=== PATIENT | male | born 1970 | race Caucasian/White ===

== ENCOUNTER 2020-11-14 14:20 | Inpatient (IN) | payer BC ==
[2020-11-14] MEDS ORDERED: MENTHOL/PHENOL 1 EACH UD MM PRN (20:11)
[2020-11-14] MEDS ORDERED: IBUPROFEN 400 MG TABLET (FP) PO PRN (20:11)
[2020-11-14] MEDS ORDERED: MAGNESIUM HYDROX 2400MG/30ML ORAL SUSPENSION 30 ML CUP PO PRN (20:11)
[2020-11-14] MEDS ORDERED: METHOCARBAMOL 500 MG TABLET PO PRN (20:11)
[2020-11-14] MEDS ORDERED: diazePAM 5 MG TABLET PO PRN (20:11)
[2020-11-14] MEDS ORDERED: ONDANSETRON *ODT* 4 MG TABLET SL PRN (20:11)
[2020-11-14] MEDS ORDERED: MAGNESIUM CITRATE 300 ML BOTTLE PO PRN (20:11)
[2020-11-14] MEDS ORDERED: NICOTINE POLACRILEX 2 MG GUM BUC PRN (20:11)
[2020-11-14] MEDS ORDERED: MAG HYDROX/AL HYDROX/SIMETH 30 ML UNIT-DOSE CUP PO PRN (20:11)
[2020-11-14] MEDS ORDERED: BISMUTH SUBSALICYLATE 524 MG/30 ML PO PRN (20:11)
[2020-11-14] MEDS ORDERED: ACETAMINOPHEN 325 MG TABLET (FP) PO PRN ×2 (20:11)
[2020-11-14 20:59] VITALS: BMI 22.1
[2020-11-15] MEDS: THIAMINE HCL 100 MG TABLET (FP) PO SCH ×2 (00:41→22:12)
[2020-11-15] MEDS: MELATONIN 5 MG TABLETS PO SCH ×2 (00:42→22:12)
[2020-11-15] MEDS: diazePAM 5 MG TABLET PO SCH ×5 (00:42→22:12)
[2020-11-15] MEDS: hydrOXYzine PAMOATE 25 MG CAPSULE (FP) PO SCH ×6 (00:42→22:12)
[2020-11-15] MEDS: ALBUTEROL SO4 HFA INHALER IH PRN ×2 (01:17→14:59)
[2020-11-15] MEDS: PRENATAL VITAMINS W/ FOLIC ACID TABLET (FP) PO SCH (10:37)
[2020-11-15] MEDS: NICOTINE 14 MG/24 HOURS TOPICAL PATCH TD SCH (10:39)
[2020-11-15] MEDS: levETIRAcetam 500 MG TABLET (FP) PO SCH (10:39)
[2020-11-15 13:42] LABS: HEMATOCRIT 37.9 % (35.4-49); HEMOGLOBIN 12.7 GM/dL (11.7-16.9); MCH 34.7 pg (25.7-33.7); MCHC 33.5 g/dl (32.0-35.9); MEAN CELL VOLUME 103.5 fl (80-96); MEAN PLT VOLUME 9.8 fl (7.5-11.1); PLATELET COUNT 101 10^3/uL (134-434); RBC 3.66 M/mm3 (4.00-5.60); RDW 14.1 % (11.9-15.9); WHITE BLOOD COUNT 4.4 K/mm3 (4.0-10.0)
[2020-11-15 14:18] LABS: CALCIUM 8.2 mg/dL (8.5-10.1)
[2020-11-15 14:19] LABS: ALBUMIN 2.9 g/dl (3.4-5.0); BLOOD UREA NITROGEN 9.9 mg/dL (7-18)
[2020-11-15 14:22] LABS: CREATININE 0.5 mg/dL (0.55-1.3)
[2020-11-15 14:23] LABS: TOT PROT 6.6 g/dl (6.4-8.2)
[2020-11-15 14:25] LABS: BILIRUBIN,TOTAL 2.2 mg/dL (0.2-1)
[2020-11-15] MEDS: GABAPENTIN 300 MG CAPSULE PO SCH ×2 (14:54→22:12)
[2020-11-15] MEDS: QUEtiapine FUMARATE 100 MG TABLET (FP) PO SCH (22:12)
[2020-11-15] MEDS: NAPROXEN 500 MG TABLET PO SCH (22:12)
[2020-11-16] MEDS: GABAPENTIN 300 MG CAPSULE PO SCH ×3 (05:34→22:10)
[2020-11-16] MEDS: hydrOXYzine PAMOATE 25 MG CAPSULE (FP) PO SCH ×5 (05:35→22:10)
[2020-11-16] MEDS: diazePAM 5 MG TABLET PO SCH ×3 (05:35→22:10)
[2020-11-16] MEDS: NAPROXEN 500 MG TABLET PO SCH ×2 (10:27→22:10)
[2020-11-16] MEDS: levETIRAcetam 500 MG TABLET (FP) PO SCH (10:27)
[2020-11-16] MEDS: NICOTINE 14 MG/24 HOURS TOPICAL PATCH TD SCH (10:28)
[2020-11-16] MEDS: PRENATAL VITAMINS W/ FOLIC ACID TABLET (FP) PO SCH (10:28)
[2020-11-16] MEDS ORDERED: POTASSIUM CHLORIDE ORAL LIQUID 20 MEQ/15 ML PO ONE ×3 (12:00→16:00)
[2020-11-16] MEDS: SULFAMETHOXAZOLE/TRIMETHOPRIM 800MG/160MG D.S. TABLET PO SCH ×2 (12:39→22:10)
[2020-11-16] MEDS: THIAMINE HCL 100 MG TABLET (FP) PO SCH (22:09)
[2020-11-16] MEDS: MELATONIN 5 MG TABLETS PO SCH (22:09)
[2020-11-16] MEDS: QUEtiapine FUMARATE 100 MG TABLET (FP) PO SCH (22:10)
[2020-11-17] MEDS: hydrOXYzine PAMOATE 25 MG CAPSULE (FP) PO SCH ×5 (06:06→23:24)
[2020-11-17] MEDS: diazePAM 5 MG TABLET PO SCH ×2 (06:06→17:44)
[2020-11-17] MEDS: GABAPENTIN 300 MG CAPSULE PO SCH ×3 (06:06→21:31)
[2020-11-17] MEDS: PRENATAL VITAMINS W/ FOLIC ACID TABLET (FP) PO SCH (10:25)
[2020-11-17] MEDS: levETIRAcetam 500 MG TABLET (FP) PO SCH (10:26)
[2020-11-17] MEDS: NAPROXEN 500 MG TABLET PO SCH ×2 (10:26→21:31)
[2020-11-17] MEDS: ALBUTEROL SO4 HFA INHALER IH PRN (10:27)
[2020-11-17] MEDS: SULFAMETHOXAZOLE/TRIMETHOPRIM 800MG/160MG D.S. TABLET PO SCH ×2 (10:27→21:31)
[2020-11-17] MEDS: NICOTINE 14 MG/24 HOURS TOPICAL PATCH TD SCH (10:27)
[2020-11-17 11:24] LABS: ALBUMIN 2.8 g/dl (3.4-5.0); BILIRUBIN,TOTAL 1.9 mg/dL (0.2-1)
[2020-11-17 11:27] LABS: BILIRUBIN,DIRECT 1.3 mg/dL (0.0-0.2); TOT PROT 5.9 g/dl (6.4-8.2)
[2020-11-17] MEDS: THIAMINE HCL 100 MG TABLET (FP) PO SCH (21:31)
[2020-11-17] MEDS: QUEtiapine FUMARATE 100 MG TABLET (FP) PO SCH (21:31)
[2020-11-17] MEDS: MELATONIN 5 MG TABLETS PO SCH (21:32)
[2020-11-18] MEDS: GABAPENTIN 300 MG CAPSULE PO SCH (05:38)
[2020-11-18] MEDS: hydrOXYzine PAMOATE 25 MG CAPSULE (FP) PO SCH ×2 (05:39→10:45)
[2020-11-18] MEDS ORDERED: diazePAM 5 MG TABLET PO ONE (06:00)
[2020-11-18 06:34] VITALS: TEMP 97.5
[2020-11-18 10:00] VITALS: BP 115/77; PULSE 72
[2020-11-18] MEDS: levETIRAcetam 500 MG TABLET (FP) PO SCH (10:44)
[2020-11-18] MEDS: SULFAMETHOXAZOLE/TRIMETHOPRIM 800MG/160MG D.S. TABLET PO SCH (10:44)
[2020-11-18] MEDS: NAPROXEN 500 MG TABLET PO SCH (10:44)
[2020-11-18] MEDS: NICOTINE 14 MG/24 HOURS TOPICAL PATCH TD SCH (10:45)
[2020-11-18] MEDS: PRENATAL VITAMINS W/ FOLIC ACID TABLET (FP) PO SCH (10:45)
== END 2020-11-18 13:25 | disposition home or self-care (01) | DRG 897 ==
LOC: YASAS 14:20 → Y6N 20:31
PROVIDERS: ADMIT Allergy & Immunology; ATTEND Allergy & Immunology
PROC: HZ2ZZZZ Detoxification Services for Substance Abuse Treatment (ICD-10-PCS; principal; 2020-11-14)
DX: F10.230 Alcohol dependence with withdrawal, uncomplicated (principal); F14.20 Cocaine dependence, uncomplicated; F19.280 Other psychoactive substance dependence with psychoactive substance-induced anxiety disorder; F19.282 Other psychoactive substance dependence with psychoactive substance-induced sleep disorder; F33.1 Major depressive disorder, recurrent, moderate; G40.919 Epilepsy, unspecified, intractable, without status epilepticus; F12.20 Cannabis dependence, uncomplicated; F17.210 Nicotine dependence, cigarettes, uncomplicated; F19.24 Other psychoactive substance dependence with psychoactive substance-induced mood disorder; F43.10 Post-traumatic stress disorder, unspecified; I10 Essential (primary) hypertension; J45.909 Unspecified asthma, uncomplicated; K74.60 Unspecified cirrhosis of liver; D64.9 Anemia, unspecified; Z62.810 Personal history of physical and sexual abuse in childhood; R79.89 Other specified abnormal findings of blood chemistry; Z91.048 Other nonmedicinal substance allergy status
CPT/HCPCS: 36415; 80053; 80076; 80177; 84132; 85027; 86780; C9803; U0003; U0005

== ENCOUNTER 2022-04-10 17:28 | Inpatient (IN) | payer BC, OTHER ==
[2022-04-10 19:05] VITALS: BMI 22.6
[2022-04-10] MEDS ORDERED: POLYETHYLENE GLYCOL (HEALTHYLAX) 3350 17 GM PACKET PO PRN (21:18)
[2022-04-10] MEDS ORDERED: IBUPROFEN 400 MG TABLET (FP) PO PRN (21:18)
[2022-04-10] MEDS ORDERED: BENZOCAINE/MENTHOL (CHLORASEPTIC ) LOZENGE MM PRN (21:18)
[2022-04-10] MEDS ORDERED: NICOTINE POLACRILEX 2 MG GUM BUC PRN (21:18)
[2022-04-10] MEDS ORDERED: ONDANSETRON *ODT* 4 MG TABLET SL PRN (21:18)
[2022-04-10] MEDS ORDERED: MAG HYDROX/AL HYDROX/SIMETH 30 ML UNIT-DOSE CUP PO PRN (21:18)
[2022-04-10] MEDS ORDERED: NALOXONE HCL (KLOXXADO) 8 MG SPRAY NS PRN (21:18)
[2022-04-10] MEDS ORDERED: BISMUTH SUBSALICYLATE 524 MG/30 ML PO PRN (21:18)
[2022-04-10] MEDS ORDERED: ACETAMINOPHEN 325 MG TABLET (FP) PO PRN ×2 (21:18)
[2022-04-10] MEDS ORDERED: MAGNESIUM HYDROX 2400MG/30ML ORAL SUSPENSION 30 ML CUP PO PRN (21:18)
[2022-04-10] MEDS ORDERED: LOPERAMIDE HCL 2 MG CAPSULE PO PRN (21:18)
[2022-04-10] MEDS: THIAMINE HCL 100 MG TABLET (FP) PO SCH (23:23)
[2022-04-10] MEDS: MELATONIN 5 MG TABLETS PO SCH (23:23)
[2022-04-11] MEDS: METHOCARBAMOL 500 MG TABLET PO PRN (05:29)
[2022-04-11] MEDS: ALBUTEROL SO4 HFA INHALER IH PRN ×2 (05:30→10:33)
[2022-04-11] MEDS: PRENATAL VITAMINS W/ FOLIC ACID TABLET (FP) PO SCH (10:34)
[2022-04-11] MEDS: diazePAM 5 MG TABLET PO SCH ×3 (10:36→22:18)
[2022-04-11 10:40] LABS: HEMATOCRIT 36.6 % (35.4-49); HEMOGLOBIN 11.9 GM/dL (11.7-16.9); MCH 32.6 pg (25.7-33.7); MCHC 32.6 g/dl (32.0-35.9); MEAN PLT VOLUME 9.1 fl (7.5-11.1); PLATELET COUNT 81 10^3/uL (134-434); RBC 3.66 M/mm3 (4.00-5.60); RDW 14.7 % (11.9-15.9); WHITE BLOOD COUNT 5.1 K/mm3 (4.0-10.0)
[2022-04-11] MEDS: NICOTINE 14 MG/24 HOURS TOPICAL PATCH TD SCH (10:40)
[2022-04-11] MEDS: SERTRALINE HCL 50 MG TABLET (FP) PO SCH (10:40)
[2022-04-11] MEDS: IBUPROFEN 600 MG TABLET (FP) PO PRN (10:40)
[2022-04-11 10:45] LABS: BLOOD UREA NITROGEN 9.8 mg/dL (7-18)
[2022-04-11 10:49] LABS: CALCIUM 8.6 mg/dL (8.5-10.1); TOT PROT 6.9 g/dl (6.4-8.2)
[2022-04-11 10:50] LABS: ALBUMIN 2.3 g/dl (3.4-5.0)
[2022-04-11 10:53] LABS: CREATININE 0.7 mg/dL (0.55-1.3)
[2022-04-11] MEDS: diazePAM 5 MG TABLET PO PRN (12:20)
[2022-04-11] MEDS ORDERED: levETIRAcetam 500 MG TABLET (FP) PO ONE ×2 (12:50→14:30)
[2022-04-11] MEDS: BUDESONIDE/FORMETEROL FUMARATE 160/4.5 mcg INHALER IH SCH ×2 (14:16→22:18)
[2022-04-11] MEDS: levETIRAcetam 500 MG TABLET (FP) PO SCH (22:18)
[2022-04-11] MEDS: MELATONIN 5 MG TABLETS PO SCH (22:18)
[2022-04-11] MEDS: THIAMINE HCL 100 MG TABLET (FP) PO SCH (22:18)
[2022-04-11] MEDS: QUEtiapine FUMARATE 100 MG TABLET (FP) PO SCH (22:18)
[2022-04-12] MEDS: diazePAM 5 MG TABLET PO SCH ×4 (05:59→22:10)
[2022-04-12] MEDS: BUDESONIDE/FORMETEROL FUMARATE 160/4.5 mcg INHALER IH SCH ×2 (10:31→22:10)
[2022-04-12] MEDS: PRENATAL VITAMINS W/ FOLIC ACID TABLET (FP) PO SCH (10:31)
[2022-04-12] MEDS: levETIRAcetam 500 MG TABLET (FP) PO SCH ×2 (10:32→22:10)
[2022-04-12] MEDS: SERTRALINE HCL 50 MG TABLET (FP) PO SCH (10:32)
[2022-04-12] MEDS: NICOTINE 14 MG/24 HOURS TOPICAL PATCH TD SCH (10:35)
[2022-04-12] MEDS: MELATONIN 5 MG TABLETS PO SCH (22:09)
[2022-04-12] MEDS: QUEtiapine FUMARATE 100 MG TABLET (FP) PO SCH (22:09)
[2022-04-12] MEDS: THIAMINE HCL 100 MG TABLET (FP) PO SCH (22:09)
[2022-04-12] MEDS: DICYCLOMINE HCL 10 MG CAPSULE PO PRN (22:12)
[2022-04-13] MEDS: diazePAM 5 MG TABLET PO SCH ×4 (05:53→22:39)
[2022-04-13] MEDS: levETIRAcetam 500 MG TABLET (FP) PO SCH ×2 (10:26→22:39)
[2022-04-13] MEDS: SERTRALINE HCL 50 MG TABLET (FP) PO SCH (10:26)
[2022-04-13] MEDS: BUDESONIDE/FORMETEROL FUMARATE 160/4.5 mcg INHALER IH SCH ×2 (10:26→22:38)
[2022-04-13] MEDS: PRENATAL VITAMINS W/ FOLIC ACID TABLET (FP) PO SCH (10:26)
[2022-04-13] MEDS: NICOTINE 14 MG/24 HOURS TOPICAL PATCH TD SCH (10:27)
[2022-04-13] MEDS: diazePAM 5 MG TABLET PO PRN (10:36)
[2022-04-13] MEDS: IBUPROFEN 600 MG TABLET (FP) PO PRN ×2 (10:38→23:56)
[2022-04-13] MEDS: METHOCARBAMOL 500 MG TABLET PO PRN (22:38)
[2022-04-13] MEDS: QUEtiapine FUMARATE 100 MG TABLET (FP) PO SCH (22:38)
[2022-04-13] MEDS: THIAMINE HCL 100 MG TABLET (FP) PO SCH (22:39)
[2022-04-13] MEDS: MELATONIN 5 MG TABLETS PO SCH (22:40)
[2022-04-13] MEDS: DICYCLOMINE HCL 10 MG CAPSULE PO PRN (23:56)
[2022-04-14] MEDS: diazePAM 5 MG TABLET PO SCH ×3 (06:08→17:28)
[2022-04-14] MEDS: BUDESONIDE/FORMETEROL FUMARATE 160/4.5 mcg INHALER IH SCH ×2 (11:56→21:45)
[2022-04-14] MEDS: levETIRAcetam 500 MG TABLET (FP) PO SCH ×2 (11:56→21:45)
[2022-04-14] MEDS: NICOTINE 14 MG/24 HOURS TOPICAL PATCH TD SCH (11:56)
[2022-04-14] MEDS: PRENATAL VITAMINS W/ FOLIC ACID TABLET (FP) PO SCH (11:56)
[2022-04-14] MEDS: SERTRALINE HCL 50 MG TABLET (FP) PO SCH (11:57)
[2022-04-14] MEDS: THIAMINE HCL 100 MG TABLET (FP) PO SCH (21:45)
[2022-04-14] MEDS: METHOCARBAMOL 500 MG TABLET PO PRN (21:45)
[2022-04-14] MEDS: QUEtiapine FUMARATE 100 MG TABLET (FP) PO SCH (21:45)
[2022-04-14] MEDS: MELATONIN 5 MG TABLETS PO SCH (21:46)
[2022-04-15] MEDS ORDERED: diazePAM 5 MG TABLET PO ONE (06:00)
[2022-04-15] MEDS: BUDESONIDE/FORMETEROL FUMARATE 160/4.5 mcg INHALER IH SCH (10:22)
[2022-04-15] MEDS: levETIRAcetam 500 MG TABLET (FP) PO SCH (10:23)
[2022-04-15] MEDS: PRENATAL VITAMINS W/ FOLIC ACID TABLET (FP) PO SCH (10:23)
[2022-04-15] MEDS: NICOTINE 14 MG/24 HOURS TOPICAL PATCH TD SCH (10:23)
[2022-04-15] MEDS: SERTRALINE HCL 50 MG TABLET (FP) PO SCH (10:54)
[2022-04-15] MEDS: METHOCARBAMOL 500 MG TABLET PO PRN (13:28)
[2022-04-15 14:18] VITALS: BP 132/84; PULSE 76; RESP 18; TEMP 98.1
== END 2022-04-15 15:07 | disposition home or self-care (01) | DRG 897 ==
LOC: YASAS 17:28 → Y6N 21:46
PROVIDERS: ADMIT Allergy & Immunology; ATTEND Surgery
PROC: HZ2ZZZZ Detoxification Services for Substance Abuse Treatment (ICD-10-PCS; principal; 2022-04-10)
DX: F10.230 Alcohol dependence with withdrawal, uncomplicated (principal); F14.20 Cocaine dependence, uncomplicated; F19.282 Other psychoactive substance dependence with psychoactive substance-induced sleep disorder; F19.280 Other psychoactive substance dependence with psychoactive substance-induced anxiety disorder; F33.1 Major depressive disorder, recurrent, moderate; F12.20 Cannabis dependence, uncomplicated; F17.210 Nicotine dependence, cigarettes, uncomplicated; F19.24 Other psychoactive substance dependence with psychoactive substance-induced mood disorder; F43.10 Post-traumatic stress disorder, unspecified; G40.909 Epilepsy, unspecified, not intractable, without status epilepticus; J45.909 Unspecified asthma, uncomplicated; K21.9 Gastro-esophageal reflux disease without esophagitis; K74.60 Unspecified cirrhosis of liver; Z62.810 Personal history of physical and sexual abuse in childhood; Z87.820 Personal history of traumatic brain injury
CPT/HCPCS: 36415; 80053; 85027; 86780; 87811; 93005; 93010; C9803-CS; Q0162; U0003; U0005